=== PATIENT | female | born 2005 | race Caucasian/White ===

== ENCOUNTER 2024-07-17 08:12 | Emergency (ER) | payer MEDICAID ==
[~2024-07-17] VITALS: Ht 160 cm; Wt 79.5 kg
[2024-07-17 08:15] VITALS: TEMP 99.6
[2024-07-17] MEDS ORDERED: NS 1,000 ML IV ONE (08:30)
[2024-07-17] MEDS ORDERED: Ondansetron 4 MG/2 ML VIAL IV ONE (08:30)
[2024-07-17] MEDS ORDERED: Morphine 4 MG/ML VIAL IV PRN (08:30)
[2024-07-17 08:39] LABS: BASO % 0.3 % (0.0-2.0); EOS % 0.3 % (0.0-4.0); GRAN # 9.1 K/mm3 (1.4-6.5); GRAN % 82.9 % (42.2-75.2); HEMATOCRIT 38.4 % (35.0-45.0); HEMOGLOBIN 13.1 g/dl (12.0-15.0); LYMPH % 8.8 % (20.0-51.0); MEAN CELL VOLUME 79 fl (80.0-95.0); MEAN CORPUSCULAR HEMOGLOBIN 27 pg (26-32); MEAN CORPUSCULAR HGB CONC 34 g/dl (33.0-37.0); MEAN PLATELET VOLUME 9.7 fl (7.4-10.4); MONO # 0.8 K/mm3 (0.1-0.6); MONO % 7.4 % (1.7-9.3); PLATELET COUNT 352 K/mm3 (130-400); RED BLOOD COUNT 4.85 M/mm3 (4.10-5.30)
[2024-07-17] MEDS ORDERED: Iohexol 300 - 100 ML VIAL IV ONE (09:02)
[2024-07-17] MEDS ORDERED: NS 100 ML IV SCH (09:02)
[2024-07-17 09:30] LABS: ALBUMIN 3.6 g/dL (3.5-5.0); BILIRUBIN,TOTAL 0.4 mg/dL (0.2-1.2); CALCIUM 9.2 mg/dL (8.4-10.2); CREATININE, serum 0.56 mg/dL (0.57-1.11); TOTAL PROTEIN 6.8 g/dl (6.2-8.1)
[2024-07-17 09:54] LABS: PH 5.5 (5.0-8.5); URINE APPEARANCE CLOUDY (CLEAR/HAZY); URINE BLOOD TRACE (NEGATIVE); URINE COLOR YELLOW (YELLOW); URINE GLUCOSE NEGATIVE (NEGATIVE); URINE KETONE 1+ (NEGATIVE); URINE NITRATE NEGATIVE (NEGATIVE); URINE PROTEIN(semi-quant) NEGATIVE (NEGATIVE); URINE UROBILINOGEN 0.2 E.U/dL (0.2-1.0)
[2024-07-17 09:59] LABS: COLLECTION METHOD CLEAN CATCH
[2024-07-17] MEDS ORDERED: ZOFRAN ODT4 MG PO (10:13)
[2024-07-17 10:26] VITALS: BP 120/70; PULSE 94
== END 2024-07-17 10:26 | disposition home or self-care (01) ==
LOC: COL.ER 08:12
PROVIDERS: Personal Emergency Response Attendant
DX: R11.2 Nausea with vomiting, unspecified (principal); R19.7 Diarrhea, unspecified; R10.31 Right lower quadrant pain
CPT/HCPCS: J2405; J7030; Q9967

== ENCOUNTER 2024-07-26 14:30 | Emergency (ER) | payer MEDICAID ==
[~2024-07-26] VITALS: Ht 160 cm; Wt 77.3 kg
[~2024-07-26 14:30] MED LIST: ZOFRAN ODT4 MG PO
[2024-07-26 14:34] VITALS: TEMP 98.2
[2024-07-26] MEDS ORDERED: NS 1,000 ML IV ONE (15:00)
[2024-07-26 15:14] LABS: BASO % 0.4 % (0.0-2.0); EOS # 0.1 K/mm3 (0.0-0.7); EOS % 1.2 % (0.0-4.0); GRAN # 5.6 K/mm3 (1.4-6.5); GRAN % 68.7 % (42.2-75.2); HEMOGLOBIN 12.9 g/dl (12.0-15.0); LYMPH # 1.7 K/mm3 (1.2-3.4); LYMPH % 20.4 % (20.0-51.0); MEAN CELL VOLUME 78 fl (80.0-95.0); MEAN CORPUSCULAR HEMOGLOBIN 27 pg (26-32); MEAN CORPUSCULAR HGB CONC 34 g/dl (33.0-37.0); MEAN PLATELET VOLUME 9.4 fl (7.4-10.4); MONO # 0.7 K/mm3 (0.1-0.6); MONO % 9.1 % (1.7-9.3); PLATELET COUNT 380 K/mm3 (130-400); RED BLOOD COUNT 4.87 M/mm3 (4.10-5.30); REDCELL DISTRIBUTION WIDTH-CV 12.4 % (11.5-14.5)
[2024-07-26 15:30] LABS: ALANINE AMINOTRANSFERASE 21 U/L (0-55); ALBUMIN 3.7 g/dL (3.5-5.0); ALKALINE PHOSPHATASE 86 U/L (40-150); ANION GAP 10 mmol/L (7-16); AST,SGOT 14 U/L (5-34); BILIRUBIN,TOTAL 0.3 mg/dL (0.2-1.2); BLOOD UREA NITROGEN 8 mg/dL (7-19); CALCIUM 8.8 mg/dL (8.4-10.2); CHLORIDE 109 mEq/L (98-107); CREATININE, serum 0.61 mg/dL (0.57-1.11); GLUCOSE 103 mg/dL (70-99); SODIUM 141 mEq/L (136-145); TOTAL PROTEIN 6.9 g/dl (6.2-8.1)
[2024-07-26 15:50] LABS: COLLECTION METHOD CLEAN CATCH
[2024-07-26 15:51] LABS: THYROID STIMULATING HORMONE <0.003 uIU/mL (0.350-4.940)
[2024-07-26 16:03] LABS: PH 6.5 (5.0-8.5); URINE APPEARANCE CLEAR (CLEAR/HAZY); URINE BLOOD NEGATIVE (NEGATIVE); URINE COLOR YELLOW (YELLOW); URINE GLUCOSE NEGATIVE (NEGATIVE); URINE KETONE NEGATIVE (NEGATIVE); URINE NITRATE NEGATIVE (NEGATIVE); URINE PROTEIN(semi-quant) NEGATIVE (NEGATIVE); URINE UROBILINOGEN 0.2 E.U/dL (0.2-1.0)
[2024-07-26] MEDS ORDERED: K-TAB20 PO (17:35)
[2024-07-26 18:42] VITALS: BP 141/88; PULSE 108
== END 2024-07-26 18:42 | disposition home or self-care (01) ==
LOC: COL.ER 14:30
PROVIDERS: Nurse Practitioner
DX: R55 Syncope and collapse (principal); E86.0 Dehydration
CPT/HCPCS: J7030

== ENCOUNTER 2024-09-14 12:54 | Outpatient (CLI) | payer MEDICAID ==
[~2024-09-14] VITALS: Ht 160 cm; Wt 74.0 kg
[~2024-09-14 12:54] MED LIST changes: +K-TAB20 PO
[2024-09-14 13:17] VITALS: BP 116/71; PULSE 80; TEMP 98.5
[2024-09-14] MEDS ORDERED: TAPAZOLE10 MG PO (13:24)
[2024-09-14] MEDS ORDERED: ADDERALL20 MG PO (13:24)
[2024-09-14] MEDS ORDERED: TENORMIN 5050 MG/TAB PO (13:25)
[2024-09-14] MEDS ORDERED: LEXAPRO 10MG10 MG PO (13:25)
--- NOTE | 2024-09-14 15:05 | NUR ---
Yareli is transferred back to express unit rm 12. Douglas BANKS has been updated that test is complete. BS report and handoff of care to Edna CORNEJO.
[2024-09-14 15:09] VITALS: BP 115/85; PULSE 79
--- NOTE | 2024-09-14 15:51 | NUR ---
Pt ambulated to [facility]12 with a steady gait. Pt was scheduled for a tilt table test. EKG done. Meds and HX reviewed with the pt. Consent for the procedure signed. Post procedure the pt came back to [facility]12. A set of vitals were done on the pt. Douglas DAVID talked with the pt about their tilt table results. Once the pt was ready for discharge education and information was discussed with the pt. No questions at the time. The pt exited the unit with a steady gait accompanied by this nurse to their friends car.
== END 2024-09-14 16:11 | disposition home or self-care (01) ==
LOC: COL.CAR 12:54
DX: R55 Syncope and collapse (principal)